=== PATIENT | female | born 1950 | race Hispanic/Latino ===

== ENCOUNTER 2017-12-04 10:50 | Inpatient (IN) | payer OTHER ==
[~2017-12-04] VITALS: Ht 152.4 cm; Wt 90.9 kg
[~2017-12-04 10:50] MED LIST: DESI25TA16 PO; DOCU100C19 PO; LISI1TAB11 PO; METO10TA3 PO; METO50TA18 PO; PANT40TA25 PO; SERT100T12 PO; TIZA2TAB4 PO
[2017-12-04 11:47] LABS: BASOPHILS % (AUTO) 0.7 % (0.0-5.0); EOSINOPHILS % (AUTO) 0.1 % (0.0-8.0); HEMATOCRIT 40.9 % (36-48); LYMPHOCYTES % (AUTO) 15.9 % (21.0-51.0); MEAN CORPUSCULAR HEMOGLOBIN 29.9 pg (27.0-33.0); MEAN CORPUSCULAR HGB CONC 34.5 g/dL (32.0-36.0); MEAN CORPUSCULAR VOLUME 86.6 fL (79-99); MONOCYTES % (AUTO) 4.6 % (3.0-13.0); NEUTROPHILS % (AUTO) 78.7 % (40.0-77.0); PLATELET COUNT (AUTO) 184 K/uL (130-400); RED BLOOD CELL COUNT(AUTO) 4.72 MIL/uL (4.00-5.50); RED CELL DISTRIBUTION WIDTH 12.9 % (11.0-15.5); WHITE BLOOD COUNT (AUTO) 11.2 K/uL (4.8-10.8)
[2017-12-04 11:51] LABS: CREATININE 0.8 mg/dL (0.5-1.5); POTASSIUM 3.9 mmol/L (3.5-5.1)
[2017-12-04 11:56] LABS: ALBUMIN 3.9 g/dL (3.5-5.0); BILIRUBIN,TOTAL 0.8 mg/dL (0.2-1.0); TOTAL PROTEIN, SERUM 7.8 g/dL (6.0-8.3)
[2017-12-04] MEDS ORDERED: NITROGLYCERIN 0.4 MG SL TAB SL ONE (12:22)
[2017-12-04 13:20] LABS: CREATINE KINASE MB 1.6 ng/mL (0.5-3.6); CREATINE KINASE, TOTAL 165 U/L (21-232); MYOGLOBIN 93 ng/mL (10-92); TROPONIN I < 0.04 ng/mL (0.00-0.06)
[2017-12-04] MEDS ORDERED: ASPIRIN 325 MG TABLET ONE (14:34)
[2017-12-04 15:10] VITALS: BP 165/69
[2017-12-04 15:15] LABS: CREATINE KINASE MB 1.4 ng/mL (0.5-3.6); CREATINE KINASE, TOTAL 141 U/L (21-232); MYOGLOBIN 57 ng/mL (10-92); TROPONIN I < 0.04 ng/mL (0.00-0.06)
[2017-12-04] MEDS ORDERED: [UNRECOGNIZED DRUG - OTHER] (15:25)
[2017-12-04] MEDS ORDERED: METO-391 PO (15:25)
[2017-12-04] MEDS ORDERED: AMOX500T2 PO (15:25)
[2017-12-04] MEDS ORDERED: MELO-106 PO (15:25)
[2017-12-04] MEDS ORDERED: ISOS30TA6 PO (15:25)
[2017-12-04] MEDS ORDERED: ASPI-1197 PO (15:25)
[2017-12-04] MEDS ORDERED: ACET1TAB25 PO (15:25)
[2017-12-04] MEDS ORDERED: [UNRECOGNIZED DRUG - CODE] MM (15:25)
[2017-12-04] MEDS ORDERED: PANT40TA PO (15:25)
[2017-12-04] MEDS ORDERED: METF500T6 PO (15:25)
[2017-12-04] MEDS ORDERED: ROSU5TAB18 PO (15:25)
[2017-12-04] MEDS ORDERED: SERT100T12 PO (15:25)
[2017-12-04] MEDS ORDERED: LISI1TAB13 PO (15:25)
[2017-12-04] MEDS ORDERED: NITR0.4T50 SL (15:25)
[2017-12-04 18:25] LABS: CREATINE KINASE, TOTAL 134 U/L (21-232); MYOGLOBIN 82 ng/mL (10-92); TROPONIN I < 0.04 ng/mL (0.00-0.06)
[2017-12-04 19:42] LABS: CREATINE KINASE MB 1.2 ng/mL (0.5-3.6)
[2017-12-04] MEDS: CLOTRIMAZOLE 10 MG TROCHE MM SCH (19:49)
[2017-12-04] MEDS: METOPROLOL TARTRATE 25 MG TAB PO SCH (20:05)
[2017-12-04 20:06] VITALS: BP 127/59
[2017-12-04] MEDS ORDERED: ATORVASTATIN CALCIUM 10 MG TABLET PO SCH (21:00)
[2017-12-04] MEDS ORDERED: IBUPROFEN 600 MG TABLET PO PRN (21:30)
[2017-12-04] MEDS ORDERED: IBUPROFEN 600 MG TABLET ONE (21:31)
[2017-12-05 00:40] VITALS: BP 123/57
[2017-12-05 03:14] VITALS: BP 137/67
[2017-12-05 07:07] VITALS: BP 135/77
[2017-12-05] MEDS: METOPROLOL TARTRATE 25 MG TAB PO SCH (07:26)
[2017-12-05] MEDS ORDERED: PANTOPRAZOLE SODIUM 40 MG TABLET.DR PO SCH (07:30)
[2017-12-05] MEDS: REGADENOSON 0.4 MG/5 ML PF SYG IVP SCH ×2 (07:45→10:57)
[2017-12-05] MEDS ORDERED: METFORMIN HCL 500 MG TAB.SR.24H PO SCH (08:00)
[2017-12-05] MEDS: CLOTRIMAZOLE 10 MG TROCHE MM SCH (08:50)
[2017-12-05] MEDS ORDERED: LISINOPRIL 20 MG TABLET PO SCH (09:00)
[2017-12-05] MEDS ORDERED: SERTRALINE HCL 50 MG TABLET PO SCH (09:00)
[2017-12-05] MEDS ORDERED: HYDROCHLOROTHIAZIDE 25 MG TABLET PO SCH (09:00)
[2017-12-05 12:39] VITALS: BP 135/76
[2017-12-05 16:21] VITALS: BP 142/70
== END 2017-12-05 17:45 | disposition home or self-care (01) | DRG 313 ==
LOC: EDH 10:50 → EDHIP 14:20 → 2AH 15:09
PROVIDERS: ADMIT Internal Medicine; ATTEND Internal Medicine
DX: R07.89 Other chest pain (principal); B37.0 Candidal stomatitis; Q24.5 Malformation of coronary vessels; E11.9 Type 2 diabetes mellitus without complications; E78.5 Hyperlipidemia, unspecified; I10 Essential (primary) hypertension; K21.9 Gastro-esophageal reflux disease without esophagitis; Z28.21 Immunization not carried out because of patient refusal; Z82.49 Family history of ischemic heart disease and other diseases of the circulatory system
CPT/HCPCS: 36415; 78452; 80053; 82550; 82553; 82948; 83874; 84484; 85025; 93005; 93017; 96374; 99291; A9500; J2785

== ENCOUNTER → 2018-02-25 | Outpatient (CLI) | payer OTHER ==
[~2018-02-25] MED LIST changes: +ACET1TAB25 PO; +AMOX500T2 PO; +ASPI-1197 PO; +ISOS30TA6 PO; +LISI1TAB13 PO; +MELO-106 PO; +METF500T6 PO; +METO-391 PO; +NITR0.4T50 SL; +PANT40TA PO; +ROSU5TAB11 PO; +[UNRECOGNIZED DRUG - CODE] MM; +[UNRECOGNIZED DRUG - OTHER]
== END | disposition home or self-care (01) ==
LOC: RAH 09:26
PROVIDERS: ATTEND Internal Medicine Gastroenterology
DX: K31.84 Gastroparesis (principal); N28.9 Disorder of kidney and ureter, unspecified
CPT/HCPCS: 76700; 78264; A9541

== ENCOUNTER → 2018-03-10 | Outpatient (CLI) | payer OTHER | END | disposition home or self-care (01) | LOC: RAH 09:36 | PROVIDERS: ATTEND Internal Medicine Gastroenterology | DX: R13.12 Dysphagia, oropharyngeal phase (principal); R63.3 Feeding difficulties | CPT/HCPCS: G8996; G8997; G8998; 74230; 92611 ==

== ENCOUNTER → 2019-02-02 | Outpatient (CLI) | payer SELFPAY ==
[~2019-02-02] MED LIST changes: +DOCU-282 PO; -DOCU100C19 PO; +METF-444 PO; -METF500T6 PO
== END | disposition home or self-care (01) ==
LOC: OIH 10:37
PROVIDERS: ATTEND Internal Medicine Cardiovascular Disease
DX: Z13.6 Encounter for screening for cardiovascular disorders (principal)
CPT/HCPCS: 75571

== ENCOUNTER → 2019-02-04 | Outpatient (CLI) | payer OTHER | END | disposition home or self-care (01) | LOC: SHCH 13:50 | PROVIDERS: ATTEND Internal Medicine Cardiovascular Disease | DX: I11.9 Hypertensive heart disease without heart failure (principal) | CPT/HCPCS: 93306 ==

== ENCOUNTER → 2019-05-13 | Outpatient (CLI) | payer OTHER ==
[~2019-05-13] MED LIST changes: -LISI1TAB11 PO; -LISI1TAB13 PO; +LISI1TAB27 PO; +LISI1TAB29 PO; -ROSU5TAB11 PO; +ROSU5TAB12 PO; -TIZA2TAB4 PO; +TIZA2TAB5 PO
== END | disposition home or self-care (01) ==
LOC: OIH 13:10
PROVIDERS: ATTEND Internal Medicine
DX: J45.20 Mild intermittent asthma, uncomplicated (principal); G47.33 Obstructive sleep apnea (adult) (pediatric); R07.9 Chest pain, unspecified; M47.815 Spondylosis without myelopathy or radiculopathy, thoracolumbar region
CPT/HCPCS: 71046

== ENCOUNTER → 2019-05-17 | Outpatient (CLI) | payer OTHER | END | disposition home or self-care (01) | LOC: RAH 14:19 | PROVIDERS: ATTEND Internal Medicine | DX: G44.209 Tension-type headache, unspecified, not intractable (principal) | CPT/HCPCS: 70450 ==

== ENCOUNTER 2019-12-07 07:17 | Day surgery (SDC) | payer OTHER ==
[~2019-12-07] VITALS: Ht 154.9 cm; Wt 90.7 kg
[~2019-12-07 07:17] MED LIST changes: -AMOX500T2 PO; -DOCU-282 PO; -LISI1TAB27 PO; -METO50TA18 PO; -PANT40TA PO; -PANT40TA25 PO; -SERT100T12 PO; +SODIUM CHLORIDE 0.9% 1000ML 1,000 ML IV ONE; -TIZA2TAB5 PO; -[UNRECOGNIZED DRUG - CODE] MM; -[UNRECOGNIZED DRUG - OTHER]
[2019-12-07 09:04] VITALS: BP 160/74
[2019-12-07] MEDS ORDERED: SERT100T PO (09:06)
[2019-12-07] MEDS ORDERED: ACET325C6 PO (09:06)
[2019-12-07] MEDS ORDERED: BUDE10.2 IH (09:06)
[2019-12-07] MEDS ORDERED: HYDROCORTISONE AD (09:06)
[2019-12-07] MEDS ORDERED: MONT10TA26 PO (09:06)
[2019-12-07] MEDS ORDERED: LANSOPRAZOLE PO (09:06)
[2019-12-07] MEDS ORDERED: FLUTICASONE NASAL (09:06)
[2019-12-07] MEDS ORDERED: ALBUTEROL NEB (09:06)
[2019-12-07] MEDS ORDERED: PROPOFOL 10 MG/ML 20ML VIAL IV ONE (09:21)
[2019-12-07] MEDS ORDERED: SUB TO ALBUTEROL 2.5MG/3ML NEBULES PER P&T IH ONE (09:23)
[2019-12-07 09:42] VITALS: BP 117/55
[2019-12-07 09:47] VITALS: BP 113/54
[2019-12-07 09:51] VITALS: BP 118/56
[2019-12-07 09:58] VITALS: BP 129/82
== END 2019-12-07 10:15 | disposition home or self-care (01) ==
LOC: DAH 07:17 → ENDO 07:17
PROVIDERS: ATTEND Internal Medicine
DX: K21.0 Gastro-esophageal reflux disease with esophagitis (principal); K29.50 Unspecified chronic gastritis without bleeding; K22.8 Other specified diseases of esophagus; J44.9 Chronic obstructive pulmonary disease, unspecified; G47.30 Sleep apnea, unspecified; I10 Essential (primary) hypertension; M19.90 Unspecified osteoarthritis, unspecified site; F32.9 Major depressive disorder, single episode, unspecified; E11.40 Type 2 diabetes mellitus with diabetic neuropathy, unspecified; E66.9 Obesity, unspecified; Z79.82 Long term (current) use of aspirin; Z79.899 Other long term (current) drug therapy; Z83.3 Family history of diabetes mellitus; Z82.49 Family history of ischemic heart disease and other diseases of the circulatory system; Z82.5 Family history of asthma and other chronic lower respiratory diseases; Z99.89 Dependence on other enabling machines and devices; Z79.84 Long term (current) use of oral hypoglycemic drugs; Z86.010 Personal history of colon polyps; Z68.39 Body mass index [BMI] 39.0-39.9, adult
CPT/HCPCS: 43239; 82948 ×2; 93005; A4215; A4221; A4222; A4223; A4606; A4620; A4663; J2704; J7030; 88305

== ENCOUNTER 2020-03-31 12:31 | Emergency (ER) | payer OTHER ==
[2020-03-31] MEDS ORDERED: ACETAMINOPHEN EXTRA STRENGTH 500 MG TABLET ONE (14:10)
== END 2020-03-31 16:02 | disposition home or self-care (01) ==
LOC: EDH 12:31
DX: B34.9 Viral infection, unspecified (principal); I10 Essential (primary) hypertension; E78.5 Hyperlipidemia, unspecified; E11.9 Type 2 diabetes mellitus without complications

== ENCOUNTER → 2020-05-14 | Outpatient (CLI) | payer OTHER ==
[~2020-05-14] MED LIST changes: -ACET1TAB25 PO; +ACET325C6 PO; +ALBUTEROL NEB; +BUDE10.2 IH; -DESI25TA16 PO; +FLUTICASONE NASAL; +HYDROCORTISONE AD; +LANSOPRAZOLE PO; -METO10TA3 PO; +MONT10TA26 PO; +SERT100T PO; -SODIUM CHLORIDE 0.9% 1000ML 1,000 ML IV ONE
--- NOTE | 2020-05-15 12:42 | NUR ---
REPORT CALLED DR DUARTE OFFICE AND INFORMED PT COVID POSITIVE. MD OFFICE WILL NOTIFY PATIENT.
== END | disposition home or self-care (01) ==
LOC: DAH 10:00 → EDSTATUS 05-17 07:15
PROVIDERS: ATTEND Internal Medicine
DX: U07.1 COVID-19 (principal); Z86.010 Personal history of colon polyps
CPT/HCPCS: C9803; U0003

== ENCOUNTER 2020-06-05 05:58 | Day surgery (SDC) | payer OTHER ==
[~2020-06-05] VITALS: Ht 154.9 cm; Wt 90.7 kg
[2020-06-05] MEDS ORDERED: SODIUM CHLORIDE 0.9% 1000ML 1,000 ML IV ONE (06:18)
[2020-06-05 06:36] VITALS: BP 137/69
[2020-06-05] MEDS ORDERED: FLUT1AER IH (07:01)
[2020-06-05] MEDS ORDERED: PROPOFOL 10 MG/ML 20ML VIAL IV ONE (07:40)
[2020-06-05] MEDS ORDERED: SUCCINYLCHOLINE CHLORIDE 20 MG/ML 10 ML VIAL ONE (07:41)
[2020-06-05] MEDS ORDERED: LIDOCAINE HCL 1% 20 ML VIAL ONE (07:41)
[2020-06-05] MEDS ORDERED: ATROPINE SULFATE 0.1 MG/ML 10 ML SYG IVP ONE (07:50)
[2020-06-05 08:05] VITALS: BP 134/62
[2020-06-05 08:10] VITALS: BP 122/65
[2020-06-05 08:15] VITALS: BP 132/66
[2020-06-05 08:20] VITALS: BP 134/66
[2020-06-05 08:25] VITALS: BP 136/77
== END 2020-06-05 08:45 | disposition home or self-care (01) ==
LOC: ENDO 05:58 → DAH 05:58 → ENDO 08:45
PROVIDERS: ATTEND Internal Medicine
DX: R19.7 Diarrhea, unspecified (principal); Z86.010 Personal history of colon polyps; K64.1 Second degree hemorrhoids; K57.30 Diverticulosis of large intestine without perforation or abscess without bleeding; K63.5 Polyp of colon; K31.84 Gastroparesis; J45.909 Unspecified asthma, uncomplicated; Z99.89 Dependence on other enabling machines and devices; I10 Essential (primary) hypertension; K21.9 Gastro-esophageal reflux disease without esophagitis; E66.01 Morbid (severe) obesity due to excess calories; F32.9 Major depressive disorder, single episode, unspecified; G62.9 Polyneuropathy, unspecified; E11.40 Type 2 diabetes mellitus with diabetic neuropathy, unspecified; M19.90 Unspecified osteoarthritis, unspecified site; Z20.828 Contact with and (suspected) exposure to other viral communicable diseases
CPT/HCPCS: 45380; 82948 ×2; A4215; A4221; A4222; A4223; A4606; A4615; A4663; C9803; J0330; J0461; J2704; J7030; U0003

== ENCOUNTER 2022-07-06 13:01 | Emergency (ER) | payer MEDICARE, OTHER ==
[~2022-07-06] VITALS: Ht 157.5 cm; Wt 81.6 kg
[~2022-07-06 13:01] MED LIST changes: -BUDE10.2 IH; +FLUT1AER IH; -ISOS30TA6 PO; +ISOS30TA92 PO; -LISI1TAB29 PO; +LISI1TAB53 PO; +MONT-39 PO; -MONT10TA26 PO
[2022-07-06 14:15] LABS: BASOPHILS % (AUTO) 0.5 % (0.0-5.0); EOSINOPHILS % (AUTO) 1.9 % (0.0-8.0); HEMATOCRIT 36.2 % (36-48); LYMPHOCYTES % (AUTO) 19.7 % (21.0-51.0); MEAN CORPUSCULAR HEMOGLOBIN 29.7 pg (27.0-33.0); MEAN CORPUSCULAR HGB CONC 35.1 g/dL (32.0-36.0); MEAN CORPUSCULAR VOLUME 84.8 fL (79-99); MONOCYTES % (AUTO) 6.1 % (3.0-13.0); NEUTROPHILS % (AUTO) 71.3 % (40.0-77.0); PLATELET COUNT (AUTO) 167 K/uL (130-400); RED BLOOD CELL COUNT(AUTO) 4.27 MIL/uL (4.00-5.50); RED CELL DISTRIBUTION WIDTH 12.4 % (11.0-15.5); WHITE BLOOD COUNT (AUTO) 8.8 K/uL (4.8-10.8)
[2022-07-06 14:35] LABS: CREATININE 0.8 mg/dL (0.5-1.5); POTASSIUM 3.9 mmol/L (3.5-5.1)
[2022-07-06 14:47] LABS: ALBUMIN 3.7 g/dL (3.5-5.0); TOTAL PROTEIN, SERUM 7.2 g/dL (6.0-8.3)
[2022-07-06] MEDS ORDERED: CYCLOBENZAPRINE HCL 10 MG TABLET PO ONE (17:00)
[2022-07-06] MEDS ORDERED: PROMETHAZINE HCL 25 MG/ML 1ML AMPULE IM SCH (17:00)
[2022-07-06] MEDS ORDERED: 0.9% NACL 500ML IV.SOLN 500 ML IV SCH (17:00)
[2022-07-06] MEDS ORDERED: KETOROLAC 30MG VIAL (30MG/ML) IM ONE (17:00)
[2022-07-06] MEDS ORDERED: NAPR-1180 PO (18:29)
[2022-07-06] MEDS ORDERED: CYCL10TA16 PO (18:29)
[2022-07-06 18:43] VITALS: BP 132/78
== END 2022-07-06 18:51 | disposition home or self-care (01) ==
LOC: EDH 13:01
DX: G44.209 Tension-type headache, unspecified, not intractable (principal); E86.0 Dehydration; E11.9 Type 2 diabetes mellitus without complications; E78.00 Pure hypercholesterolemia, unspecified; I10 Essential (primary) hypertension; Z90.89 Acquired absence of other organs; Z90.49 Acquired absence of other specified parts of digestive tract; Z98.890 Other specified postprocedural states; Z79.899 Other long term (current) drug therapy; Z79.82 Long term (current) use of aspirin; Z79.84 Long term (current) use of oral hypoglycemic drugs
CPT/HCPCS: 99285; 70450; 82550; 83874; 84484; 80053; 85025; 36415; 96372 ×2; 93005; J7040; J2550; J1885

== ENCOUNTER 2022-12-02 15:02 | Emergency (ER) | payer OTHER ==
[~2022-12-02] VITALS: Ht 154.9 cm; Wt 83.9 kg
[~2022-12-02 15:02] MED LIST changes: +CYCL10TA16 PO; +NAPR-1180 PO
[2022-12-02 15:35] VITALS: BP 142/71
[2022-12-02] MEDS ORDERED: DEXAMETHASONE SOD PHOSPHATE 4 MG/ML 1ML VIAL ONE (17:52)
[2022-12-02] MEDS ORDERED: DEXAMETHASONE SOD PHOSPHATE 4 MG/ML 1ML VIAL IM ONE (18:00)
== END 2022-12-02 18:10 | disposition home or self-care (01) ==
LOC: EDH 15:02
DX: M70.72 Other bursitis of hip, left hip (principal); M70.71 Other bursitis of hip, right hip; M25.551 Pain in right hip; M25.552 Pain in left hip; I10 Essential (primary) hypertension; E78.00 Pure hypercholesterolemia, unspecified; E11.9 Type 2 diabetes mellitus without complications; Z79.899 Other long term (current) drug therapy; Z79.82 Long term (current) use of aspirin; Z90.89 Acquired absence of other organs; Z90.710 Acquired absence of both cervix and uterus; Z90.49 Acquired absence of other specified parts of digestive tract
CPT/HCPCS: 99283; 96372; J1100

== ENCOUNTER → 2023-02-06 | Outpatient (CLI) | payer OTHER | END | disposition home or self-care (01) | LOC: RAH 08:02 | PROVIDERS: ATTEND Internal Medicine | DX: R10.32 Left lower quadrant pain (principal) | CPT/HCPCS: 74176 ==

== ENCOUNTER 2023-03-07 11:43 | Observation (INO) | payer OTHER ==
[~2023-03-07] VITALS: Ht 154.9 cm; Wt 72.9 kg
[2023-03-07 12:14] LABS: BASOPHILS % (AUTO) 0.9 % (0.0-5.0); EOSINOPHILS % (AUTO) 4.7 % (0.0-8.0); HEMATOCRIT 33.6 % (36-48); LYMPHOCYTES % (AUTO) 35.7 % (21.0-51.0); MEAN CORPUSCULAR HEMOGLOBIN 29.4 pg (27.0-33.0); MEAN CORPUSCULAR HGB CONC 33.9 g/dL (32.0-36.0); MEAN CORPUSCULAR VOLUME 86.6 fL (79-99); NEUTROPHILS % (AUTO) 52.4 % (40.0-77.0); PLATELET COUNT (AUTO) 168 K/uL (130-400); RED BLOOD CELL COUNT(AUTO) 3.88 MIL/uL (4.00-5.50); RED CELL DISTRIBUTION WIDTH 12.3 % (11.0-15.5); WHITE BLOOD COUNT (AUTO) 5.8 K/uL (4.8-10.8)
[2023-03-07 12:24] LABS: CREATININE 1.2 mg/dL (0.5-1.5); POTASSIUM 3.8 mmol/L (3.5-5.1)
[2023-03-07 12:29] LABS: ALBUMIN 3.9 g/dL (3.5-5.0); MAGNESIUM 1.7 mg/dL (1.80-2.40)
[2023-03-07 14:48] LABS: APPEARANCE,URINE CLEAR (CLEAR); BILIRUBIN,URINE NEGATIVE (NEGATIVE); COLOR,URINE LIGHT-YELLOW (YELLOW); GLUCOSE, URINE (UA) NEGATIVE (NEGATIVE); KETONES,URINE NEGATIVE (NEGATIVE); LEUKOCYTE ESTERASE ,URINE NEGATIVE Leu/uL (NEGATIVE); NITRATE,URINE NEGATIVE (NEGATIVE); OCCULT BLOOD,URINE NEGATIVE (NEGATIVE); PROTEIN,URINE NEGATIVE (NEGATIVE); UROBILINOGEN,URINE 0.2 mg/dL (0.2-1.0)
[2023-03-07 14:52] LABS: WBC,URINE 0-1 /HPF (0-1)
[2023-03-07] MEDS ORDERED: 0.9%NACL 1000ML 1,000 ML IV ONE (15:30)
[2023-03-07] MEDS ORDERED: DICYCLOMINE HCL 10 MG/5 ML ML PO ONE (16:30)
[2023-03-07] MEDS ORDERED: MAG/ALUM/SIMETH 30 ML UDCUP PO ONE (16:30)
[2023-03-07] MEDS ORDERED: LIDOCAINE HCL 2% VISCOUS 15 ML UDCUP PO ONE (16:30)
[2023-03-08 03:50] VITALS: BP 167/78
[2023-03-08] MEDS ORDERED: METO-408 PO (03:51)
[2023-03-08] MEDS ORDERED: AEC81 PO (03:53)
[2023-03-08] MEDS ORDERED: PANT40TA54 PO (03:57)
[2023-03-08] MEDS ORDERED: HYDR-4060 PO (03:57)
[2023-03-08] MEDS ORDERED: BACL10TA PO (04:00)
[2023-03-08] MEDS ORDERED: GABA-529 PO (04:00)
[2023-03-08] MEDS ORDERED: ACET-2743 PO (04:04)
[2023-03-08] MEDS ORDERED: ACET325C6 PO (04:04)
[2023-03-08] MEDS ORDERED: CETI10TA57 PO (04:11)
[2023-03-08] MEDS ORDERED: FISH OIL/OMEGA PO (04:11)
[2023-03-08] MEDS ORDERED: MULT-1203 PO (04:11)
[2023-03-08] MEDS ORDERED: CARB15DR2 OU (04:16)
[2023-03-08] MEDS ORDERED: DICL75TA5 PO (04:16)
[2023-03-08] MEDS ORDERED: FURO20TA4 PO (04:16)
[2023-03-08 06:16] LABS: BASOPHILS % (AUTO) 0.5 % (0.0-5.0); EOSINOPHILS % (AUTO) 4.1 % (0.0-8.0); HEMATOCRIT 31.4 % (36-48); LYMPHOCYTES % (AUTO) 39.8 % (21.0-51.0); MEAN CORPUSCULAR HEMOGLOBIN 29.9 pg (27.0-33.0); MEAN CORPUSCULAR HGB CONC 34.7 g/dL (32.0-36.0); MONOCYTES % (AUTO) 6.2 % (3.0-13.0); NEUTROPHILS % (AUTO) 49.2 % (40.0-77.0); PLATELET COUNT (AUTO) 138 K/uL (130-400); RED BLOOD CELL COUNT(AUTO) 3.65 MIL/uL (4.00-5.50); RED CELL DISTRIBUTION WIDTH 12.2 % (11.0-15.5); WHITE BLOOD COUNT (AUTO) 5.6 K/uL (4.8-10.8)
[2023-03-08 06:43] LABS: ALBUMIN 3.4 g/dL (3.5-5.0); POTASSIUM 3.9 mmol/L (3.5-5.1); TOTAL PROTEIN, SERUM 6.5 g/dL (6.0-8.3)
[2023-03-08 08:00] VITALS: BP 145/71
[2023-03-08] MEDS: ASPIRIN 81 MG EC TAB PO SCH (09:00)
[2023-03-08 12:00] VITALS: BP 122/68
[2023-03-08] MEDS ORDERED: REGADENOSON 0.4 MG/5 ML PF SYG IVP SCH (12:00)
[2023-03-08 16:00] VITALS: BP 160/77
[2023-03-08] MEDS ORDERED: NITROGLYCERIN 0.4 MG SL TAB SL PRN (17:30)
[2023-03-08] MEDS ORDERED: HYDROMORPHONE 0.5 MG SYG (0.5MG/0.5ML) IVP PRN (17:30)
[2023-03-08] MEDS ORDERED: PHARMACY COMMUNICATION MISC SCH (18:00)
[2023-03-08] MEDS: HYDROCODONE/ACETAMINOPHEN 5/325 MG TAB PO PRN (18:05)
[2023-03-08] MEDS: INSULIN HUMULIN R 100 UNIT/ML 3ML SQ SCH (21:00)
[2023-03-08] MEDS: DICLOFENAC SODIUM 75 MG PO SCH (21:00)
[2023-03-08] MEDS: METOPROLOL SUCCINATE 25 MG TAB.SR.24H PO SCH (21:00)
[2023-03-08] MEDS ORDERED: ASPIRIN 81 MG EC TAB PO SCH (21:00)
[2023-03-08 21:46] VITALS: BP 152/50
[2023-03-08] MEDS: FLUTICASONE PROPIONATE 50MCG/SPRAY 16 GM BOTTLE EN SCH (22:03)
[2023-03-08] MEDS: BACLOFEN 10 MG TABLET PO SCH (22:04)
[2023-03-08] MEDS: ATORVASTATIN 10 MG TABLET PO SCH (22:04)
[2023-03-08] MEDS: MONTELUKAST SODIUM 10 MG TAB PO SCH (22:04)
[2023-03-08] MEDS: GABAPENTIN 100 MG CAPSULE PO SCH (22:04)
[2023-03-08] MEDS: CETIRIZINE HCL 5 MG TABLET PO SCH (22:07)
[2023-03-08] MEDS: ACETAMINOPHEN 500 MG TABLET PO SCH (22:07)
[2023-03-08] MEDS: ARTIFICAL TEARS SOL 15 ML OU SCH (22:09)
[2023-03-09 01:16] VITALS: BP 137/48
[2023-03-09 05:23] VITALS: BP 126/49
[2023-03-09] MEDS: INSULIN HUMULIN R 100 UNIT/ML 3ML SQ SCH ×4 (06:24→20:27)
[2023-03-09] MEDS ORDERED: METFORMIN HCL 500 MG TABLET PO SCH (08:00)
[2023-03-09 08:01] VITALS: BP 152/70
[2023-03-09] MEDS: DICLOFENAC SODIUM 75 MG PO SCH ×2 (09:00→20:27)
[2023-03-09] MEDS: GABAPENTIN 100 MG CAPSULE PO SCH ×2 (10:49→20:21)
[2023-03-09] MEDS: MULTIVITAMIN WITH MINERALS TABLET PO SCH (10:49)
[2023-03-09] MEDS: SERTRALINE HCL 50 MG TABLET PO SCH (10:49)
[2023-03-09] MEDS: FISH OIL 1000 MG/CAP PO SCH (10:49)
[2023-03-09] MEDS: FUROSEMIDE 20 MG TABLET PO SCH (10:49)
[2023-03-09] MEDS: ISOSORBIDE MONO 30MG SR TAB PO SCH (10:49)
[2023-03-09] MEDS: BACLOFEN 10 MG TABLET PO SCH ×3 (10:50→20:22)
[2023-03-09] MEDS: HYDROCHLOROTHIAZIDE 25 MG TABLET PO SCH (10:50)
[2023-03-09] MEDS: ASPIRIN 81 MG EC TAB PO SCH (10:50)
[2023-03-09] MEDS: PANTOPRAZOLE 40 MG TAB DR PO SCH (10:50)
[2023-03-09] MEDS: LISINOPRIL 20 MG TABLET PO SCH (10:50)
[2023-03-09] MEDS: ARTIFICAL TEARS SOL 15 ML OU SCH ×2 (10:51→20:22)
[2023-03-09] MEDS: FLUTICASONE PROPIONATE 50MCG/SPRAY 16 GM BOTTLE EN SCH ×2 (10:51→20:22)
[2023-03-09 11:55] VITALS: BP 147/62
[2023-03-09] MEDS: HYDROCODONE/ACETAMINOPHEN 5/325 MG TAB PO PRN (16:28)
[2023-03-09 16:54] VITALS: BP 127/65
[2023-03-09] MEDS ORDERED: ACETAMINOPHEN 650 MG PO SCH (17:00)
[2023-03-09 20:00] VITALS: BP 119/60
[2023-03-09] MEDS: MONTELUKAST SODIUM 10 MG TAB PO SCH (20:21)
[2023-03-09] MEDS: METOPROLOL SUCCINATE 25 MG TAB.SR.24H PO SCH (20:21)
[2023-03-09] MEDS: CETIRIZINE HCL 5 MG TABLET PO SCH (20:21)
[2023-03-09] MEDS: ATORVASTATIN 10 MG TABLET PO SCH (20:22)
[2023-03-09] MEDS: ACETAMINOPHEN 500 MG TABLET PO SCH (20:23)
[2023-03-10] VITALS: BP 126/54
[2023-03-10] MEDS: HYDROCODONE/ACETAMINOPHEN 5/325 MG TAB PO PRN (02:21)
[2023-03-10 04:10] VITALS: BP 98/48
[2023-03-10] MEDS: INSULIN HUMULIN R 100 UNIT/ML 3ML SQ SCH (05:59)
[2023-03-10] MEDS: ISOSORBIDE MONO 30MG SR TAB PO SCH (08:27)
[2023-03-10] MEDS: FISH OIL 1000 MG/CAP PO SCH (08:27)
[2023-03-10] MEDS: FUROSEMIDE 20 MG TABLET PO SCH (08:28)
[2023-03-10] MEDS: ASPIRIN 81 MG EC TAB PO SCH (08:28)
[2023-03-10] MEDS: LISINOPRIL 20 MG TABLET PO SCH (08:28)
[2023-03-10] MEDS: MULTIVITAMIN WITH MINERALS TABLET PO SCH (08:28)
[2023-03-10] MEDS: HYDROCHLOROTHIAZIDE 25 MG TABLET PO SCH (08:28)
[2023-03-10] MEDS: SERTRALINE HCL 50 MG TABLET PO SCH (08:29)
[2023-03-10] MEDS: GABAPENTIN 100 MG CAPSULE PO SCH (08:29)
[2023-03-10] MEDS: BACLOFEN 10 MG TABLET PO SCH (08:29)
[2023-03-10] MEDS: PANTOPRAZOLE 40 MG TAB DR PO SCH (08:29)
[2023-03-10] MEDS: FLUTICASONE PROPIONATE 50MCG/SPRAY 16 GM BOTTLE EN SCH (08:30)
[2023-03-10] MEDS: ARTIFICAL TEARS SOL 15 ML OU SCH (08:30)
[2023-03-10] MEDS: DICLOFENAC SODIUM 75 MG PO SCH (08:33)
[2023-03-10 08:43] VITALS: BP 122/47
== END 2023-03-10 10:50 | disposition home or self-care (01) ==
LOC: EDH 11:43 → EDHIP 15:22 → 3AH 03-08 03:50
PROVIDERS: ADMIT Internal Medicine; ATTEND Internal Medicine
DX: R07.89 Other chest pain (principal); Z20.822 Contact with and (suspected) exposure to COVID-19; I25.10 Atherosclerotic heart disease of native coronary artery without angina pectoris; E11.65 Type 2 diabetes mellitus with hyperglycemia; I11.0 Hypertensive heart disease with heart failure; I50.9 Heart failure, unspecified; E78.00 Pure hypercholesterolemia, unspecified; E66.9 Obesity, unspecified; N17.9 Acute kidney failure, unspecified; E86.0 Dehydration; Z79.82 Long term (current) use of aspirin; Z79.899 Other long term (current) drug therapy; Z90.710 Acquired absence of both cervix and uterus
CPT/HCPCS: 96360; 99285; 82550 ×4; 83735; 83874 ×4; 84484 ×5; 80053 ×2; 85025 ×2; 87880; 87804 ×2; 83605; 81001; 36415 ×2; 87635; 71045; 93005; 82948 ×9; 93017; 78452; 96372 ×2; 71250; 93306; 93356; G0378 ×62; C9803; J2785; A9500 ×2; J1815 ×4; 96361; 96374

== ENCOUNTER → 2023-03-26 | Outpatient (CLI) | payer OTHER ==
[~2023-03-26] MED LIST changes: +ACET-2743 PO; +AEC81 PO; -ASPI-1197 PO; +BACL10TA PO; +CARB15DR2 OU; +CETI10TA57 PO; -CYCL10TA16 PO; +DICL75TA5 PO; +FISH OIL/OMEGA PO; -FLUT1AER IH; +FURO20TA4 PO; +GABA-529 PO; +HYDR-4060 PO; -HYDROCORTISONE AD; -LANSOPRAZOLE PO; -MELO-106 PO; -METO-391 PO; +METO-408 PO; +MULT-1203 PO; -NAPR-1180 PO; +PANT40TA54 PO
== END | disposition home or self-care (01) ==
LOC: RAH 16:04
PROVIDERS: ATTEND Internal Medicine
DX: J20.9 Acute bronchitis, unspecified (principal); M47.814 Spondylosis without myelopathy or radiculopathy, thoracic region
CPT/HCPCS: 71046

== ENCOUNTER 2023-06-22 18:01 | Emergency (ER) | payer MEDICARE, OTHER ==
[~2023-06-22] VITALS: Ht 154.9 cm; Wt 81.6 kg
[2023-06-22 18:39] LABS: BASOPHILS # (AUTO) 0.05 K/uL (0.00-0.20); BASOPHILS % (AUTO) 0.6 % (0.0-5.0); EOSINOPHILS # (AUTO) 0.14 K/uL (0.00-0.70); EOSINOPHILS % (AUTO) 1.6 % (0.0-8.0); HEMATOCRIT 35.1 % (36-48); IMMATURE GRANULOCYTE ABSOLUTE 0.02 K/uL (0-1); LYMPHOCYTES # (AUTO) 2.6 K/uL (1.0-4.8); LYMPHOCYTES % (AUTO) 30.6 % (21.0-51.0); MEAN CORPUSCULAR HEMOGLOBIN 28.1 pg (27.0-33.0); MONOCYTES # (AUTO) 0.5 K/uL (0.1-1.0); MONOCYTES % (AUTO) 5.5 % (3.0-13.0); NEUTROPHILS # (AUTO) 5.3 K/uL (1.8-7.7); NEUTROPHILS % (AUTO) 61.5 % (40.0-77.0); PLATELET COUNT (AUTO) 185 K/uL (130-400); RED BLOOD CELL COUNT(AUTO) 4.13 MIL/uL (4.00-5.50); RED CELL DISTRIBUTION WIDTH 16.2 % (11.0-15.5); WHITE BLOOD COUNT (AUTO) 8.6 K/uL (4.8-10.8)
[2023-06-22 18:43] LABS: APPEARANCE,URINE CLEAR (CLEAR); BILIRUBIN,URINE NEGATIVE (NEGATIVE); COLOR,URINE LIGHT-YELLOW (YELLOW); GLUCOSE, URINE (UA) NEGATIVE (NEGATIVE); KETONES,URINE NEGATIVE (NEGATIVE); LEUKOCYTE ESTERASE ,URINE 25 Leu/uL (NEGATIVE); NITRATE,URINE NEGATIVE (NEGATIVE); OCCULT BLOOD,URINE NEGATIVE (NEGATIVE); PROTEIN,URINE NEGATIVE (NEGATIVE); UROBILINOGEN,URINE 0.2 mg/dL (0.2-1.0)
[2023-06-22 18:48] LABS: CREATININE 2.9 mg/dL (0.5-1.5); POTASSIUM 3.5 mmol/L (3.5-5.1)
[2023-06-22 18:49] LABS: ADD UA MICROSCOPIC YES
[2023-06-22 18:50] LABS: MUCUS,URINE RARE LPF (None Seen); RBC,URINE 0-1 /HPF (0-1)
[2023-06-22] MEDS ORDERED: ONDANSETRON ODT 4MG TAB SL ONE (19:30)
[2023-06-22 19:55] VITALS: BP 123/51; PULSE 67; RESP 17; O2SAT 99
[2023-06-22] MEDS ORDERED: ONDA-104 PO (21:12)
== END 2023-06-22 21:31 | disposition home or self-care (01) ==
LOC: EDH 18:01
DX: R11.2 Nausea with vomiting, unspecified (principal); E11.9 Type 2 diabetes mellitus without complications; F41.9 Anxiety disorder, unspecified; E78.00 Pure hypercholesterolemia, unspecified; I11.0 Hypertensive heart disease with heart failure; I50.9 Heart failure, unspecified; K21.9 Gastro-esophageal reflux disease without esophagitis; E66.9 Obesity, unspecified; Z68.34 Body mass index [BMI] 34.0-34.9, adult; Z79.82 Long term (current) use of aspirin; Z79.899 Other long term (current) drug therapy; Z90.49 Acquired absence of other specified parts of digestive tract; Z90.710 Acquired absence of both cervix and uterus
CPT/HCPCS: 36415; 71045; 80048; 81001; 85025; 93005

== ENCOUNTER → 2024-04-08 | Outpatient (CLI) | payer OTHER ==
[~2024-04-08] MED LIST changes: +ONDA-104 PO; -ROSU5TAB12 PO; +ROSU5TAB43 PO
== END | disposition home or self-care (01) ==
LOC: SHCH 08:32
PROVIDERS: ATTEND Internal Medicine Cardiovascular Disease
DX: I08.3 Combined rheumatic disorders of mitral, aortic and tricuspid valves (principal)
CPT/HCPCS: 93306

== ENCOUNTER → 2024-06-21 | Outpatient (CLI) | payer OTHER | END | disposition home or self-care (01) | LOC: RAH 15:44 | PROVIDERS: ATTEND Internal Medicine | DX: S33.39XA Dislocation of other parts of lumbar spine and pelvis, initial encounter (principal); S33.140A Subluxation of L4/L5 lumbar vertebra, initial encounter; M47.26 Other spondylosis with radiculopathy, lumbar region; M48.07 Spinal stenosis, lumbosacral region; M16.9 Osteoarthritis of hip, unspecified; Z98.890 Other specified postprocedural states; X58.XXXA Exposure to other specified factors, initial encounter; Y93.89 Activity, other specified; Y92.89 Other specified places as the place of occurrence of the external cause; Y99.8 Other external cause status | CPT/HCPCS: 72100; 73521 ==

== ENCOUNTER 2024-07-14 23:20 | Observation (INO) | payer OTHER ==
[~2024-07-14] VITALS: Ht 144.8 cm; Wt 86.4 kg
[2024-07-15] MEDS: NITROGLYCERIN 0.4 MG SL TAB SL PRN (00:18)
[2024-07-15] MEDS: morPHINE 2 MG SYG IVP ONE (00:18)
[2024-07-15] MEDS: ondanSETRON 4MG INJ IVP ONE (00:19)
[2024-07-15 00:49] LABS: APPEARANCE,URINE CLEAR (CLEAR); BILIRUBIN,URINE NEGATIVE (NEGATIVE); COLOR,URINE LIGHT-YELLOW (YELLOW); GLUCOSE, URINE (UA) NEGATIVE (NEGATIVE); KETONES,URINE NEGATIVE (NEGATIVE); LEUKOCYTE ESTERASE ,URINE NEGATIVE Leu/uL (NEGATIVE); NITRATE,URINE NEGATIVE (NEGATIVE); OCCULT BLOOD,URINE NEGATIVE (NEGATIVE); PH,URINE 5.5 (5.0-8.0); PROTEIN,URINE NEGATIVE (NEGATIVE); UROBILINOGEN,URINE 0.2 mg/dL (0.2-1.0)
[2024-07-15 00:55] LABS: ADD UA MICROSCOPIC NO
[2024-07-15 01:08] LABS: CREATININE 1.2 mg/dL (0.5-1.0); POTASSIUM 3.9 mmol/L (3.5-5.1)
[2024-07-15 01:13] LABS: BASOPHILS # (AUTO) 0.04 K/uL (0.00-0.20); BASOPHILS % (AUTO) 0.7 % (0.0-5.0); EOSINOPHILS # (AUTO) 0.16 K/uL (0.00-0.70); HEMATOCRIT 34.7 % (36-48); IMMATURE GRANULOCYTE ABSOLUTE 0.03 K/uL (0-1); LYMPHOCYTES # (AUTO) 1.5 K/uL (1.0-4.8); LYMPHOCYTES % (AUTO) 27.9 % (21.0-51.0); MEAN CORPUSCULAR HEMOGLOBIN 31.2 pg (27.0-33.0); MEAN CORPUSCULAR HGB CONC 34.6 g/dL (32.0-36.0); MEAN CORPUSCULAR VOLUME 90.1 fL (79-99); MONOCYTES # (AUTO) 0.5 K/uL (0.1-1.0); MONOCYTES % (AUTO) 10.1 % (3.0-13.0); NEUTROPHILS # (AUTO) 3.1 K/uL (1.8-7.7); NEUTROPHILS % (AUTO) 57.7 % (40.0-77.0); PLATELET COUNT (AUTO) 136 K/uL (130-400); RED BLOOD CELL COUNT(AUTO) 3.85 MIL/uL (4.00-5.50); RED CELL DISTRIBUTION WIDTH 12.7 % (11.0-15.5); WHITE BLOOD COUNT (AUTO) 5.4 K/uL (4.8-10.8)
[2024-07-15] MEDS ORDERED: AMLO2.5T4 PO (01:19)
[2024-07-15] MEDS ORDERED: METO5 PO (01:19)
[2024-07-15] MEDS ORDERED: CELE200C3 PO (01:19)
[2024-07-15] MEDS ORDERED: ROSU5TAB43 PO (01:19)
[2024-07-15] MEDS ORDERED: MONT-39 PO (01:19)
[2024-07-15] MEDS ORDERED: GLIM2TAB30 PO (01:19)
[2024-07-15] MEDS ORDERED: hydrALAZine 20MG/ML VIAL IV PRN (02:30)
[2024-07-15] MEDS ORDERED: DEXTROSE 5 %-0.45 % NACL 500 ML IV SCH (02:30)
[2024-07-15] MEDS: hydrALAZine 20MG/ML VIAL IV ONE (02:51)
[2024-07-15 04:00] VITALS: BP 159/57; PULSE 80; RESP 20; TEMP 97.5; O2SAT 100
[2024-07-15 07:58] VITALS: BP 145/70; PULSE 82; RESP 18; TEMP 97.4
[2024-07-15 08:15] VITALS: O2SAT 100
[2024-07-15] MEDS: ASPIRIN 81MG CHEW TAB PO SCH (10:04)
[2024-07-15] MEDS: REGADENOSON 0.4 MG/5 ML PF SYG IVP SCH (10:04)
[2024-07-15 11:46] VITALS: BP 146/74; PULSE 68; RESP 20; TEMP 97.8
[2024-07-15 15:40] VITALS: BP 148/76; PULSE 76; RESP 20; TEMP 98.1
[2024-07-15] MEDS: ISOSORBIDE MONO 30MG SR TAB PO SCH (17:23)
[2024-07-15] MEDS: hydroCHLOROthiazide 25 MG TABLET PO SCH (17:23)
[2024-07-15] MEDS: metoCLOPRAmide 5 MG TABLET PO SCH (17:24)
[2024-07-15] MEDS: HYDROcodone/APAP 5/325 1 TAB TABLET PO PRN (17:32)
[2024-07-15] MEDS ORDERED: atorVAStatin 20 MG TABLET PO SCH (21:00)
[2024-07-15] MEDS ORDERED: CeleCOXib 200 MG CAP PO SCH (21:00)
[2024-07-15] MEDS ORDERED: monteLUKAST sodIUM 10 MG TAB PO SCH (21:00)
[2024-07-16] MEDS ORDERED: LISINOPRIL 20 MG TABLET PO SCH ×2 (09:00)
[2024-07-16] MEDS ORDERED: ISOSORBIDE MONO 30MG SR TAB PO SCH (09:00)
[2024-07-16] MEDS ORDERED: hydroCHLOROthiazide 25 MG TABLET PO SCH (09:00)
[2024-07-16] MEDS ORDERED: GLIMEPIRIDE 2 MG TABLET PO SCH (09:00)
[2024-07-16] MEDS ORDERED: SERTraline HCL 50 MG TABLET PO SCH (09:00)
[2024-07-16] MEDS ORDERED: PANTOPrazole 40 MG TAB DR PO SCH (09:00)
== END 2024-07-15 18:59 | disposition home or self-care (01) ==
LOC: EDH 23:20 → EDHIP 07-15 02:17 → OBSVTOIN 07-15 02:17 → INTOOBSV 07-15 02:17 → 4CH 07-15 02:42
PROVIDERS: ADMIT Internal Medicine; ATTEND Internal Medicine
DX: R07.89 Other chest pain (principal); I11.0 Hypertensive heart disease with heart failure; I50.9 Heart failure, unspecified; E11.65 Type 2 diabetes mellitus with hyperglycemia; E78.5 Hyperlipidemia, unspecified; I16.1 Hypertensive emergency; I25.119 Atherosclerotic heart disease of native coronary artery with unspecified angina pectoris; G89.29 Other chronic pain; Z90.49 Acquired absence of other specified parts of digestive tract; Z79.899 Other long term (current) drug therapy; Z79.84 Long term (current) use of oral hypoglycemic drugs
CPT/HCPCS: 78452; 99285; 96374; 96375; 71045; 82550 ×3; 84484 ×4; 80048; 83880; 85025; 82948 ×3; 81003; 36415; 93017; 93005; G0378; J2270; J0360; J2405; J2785; A9500 ×2

== ENCOUNTER 2025-07-11 08:00 | Inpatient (IN) | payer OTHER ==
[~2025-07-11] VITALS: Ht 152.4 cm; Wt 86.0 kg
[~2025-07-11 08:00] MED LIST changes: -ACET-2743 PO; -ACET325C6 PO; -AEC81 PO; -ALBUTEROL NEB; -BACL10TA PO; -CARB15DR2 OU; +CELE200C3 PO; -CETI10TA57 PO; -DICL75TA5 PO; -FISH OIL/OMEGA PO; -FLUTICASONE NASAL; -FURO20TA4 PO; -GABA-529 PO; +GLIM2TAB30 PO; -METF-444 PO; -METO-408 PO; +METO5 PO; -MULT-1203 PO; -NITR0.4T50 SL; -ONDA-104 PO; -ROSU5TAB43 PO; +ROSU5TAB51 PO
[2025-07-11 09:17] VITALS: BP 146/72; PULSE 65; RESP 18; TEMP 97.5
[2025-07-11 09:17] LABS: IMMATURE GRANULOCYTE ABSOLUTE 0.08 K/uL (0-1); NUCLEATED RED BLOOD CELLS 0.0 % (0.0-0.19); PLATELET COUNT (AUTO) 149 K/uL (130-400); RED BLOOD CELL COUNT(AUTO) 3.86 MIL/uL (4.00-5.50); RED CELL DISTRIBUTION WIDTH 12.8 % (11.0-15.5); WHITE BLOOD COUNT (AUTO) 7.0 K/uL (4.8-10.8)
[2025-07-11 09:25] LABS: CREATININE 1.3 mg/dL (0.5-1.0); GLOMERULAR FILTR. RATE CALC 43.0 mL/min (>90); GLUCOSE,RANDOM 325.0 mg/dL (70-105); SODIUM SERUM 137.0 mmol/L (136-145); UREA NITROGEN, BLOOD 32.0 mg/dL (7-18)
[2025-07-11 09:36] LABS: INR 1.06 (0.85-1.15)
[2025-07-11] MEDS ORDERED: OZEMPIC SQ (10:08)
[2025-07-11] MEDS ORDERED: GABA-529 PO (10:08)
[2025-07-13] VITALS (21 sets, daily range): BP systolic 101–153; BP diastolic 50–77; PULSE 61–81; RESP 14–18; TEMP 97–98.7; O2SAT 94
[2025-07-13 08:48] LABS: ADD UA MICROSCOPIC NO; APPEARANCE,URINE CLEAR (CLEAR); GLUCOSE, URINE (UA) NEGATIVE (NEGATIVE); LEUKOCYTE ESTERASE ,URINE NEGATIVE Leu/uL (NEGATIVE); NITRATE,URINE NEGATIVE (NEGATIVE); OCCULT BLOOD,URINE NEGATIVE (NEGATIVE)
[2025-07-13] MEDS ORDERED: TRANEXAMIC ACID 1000MG/10ML ONE (09:20)
[2025-07-13] MEDS ORDERED: methylPREDNISolone aceTATE 40 MG/ML VIAL ONE (09:22)
[2025-07-13] MEDS ORDERED: VANCOMYCIN 1G/250ML KIT 250 ML IV ONE (09:26)
[2025-07-13] MEDS ORDERED: THROMBIN-JMI 20000 UNIT KIT TP ONE (09:26)
[2025-07-13] MEDS: 0.9%NACL 1000ML 1,000 ML IV ONE (09:29)
[2025-07-13] MEDS ORDERED: LIDOCAINE HCL MPF 1% 5ML VIAL ONE (10:36)
[2025-07-13] MEDS ORDERED: MIDAZOLAM HCL 1 MG/ML 2ML VIAL ONE (10:37)
[2025-07-13] MEDS: TRANEXAMIC ACID 1000MG/10ML IV ONE (10:58)
[2025-07-13] MEDS ORDERED: GLYCOPYRROLATE 0.2 MG/ML 5 ML VIAL ONE (13:16)
[2025-07-13] MEDS ORDERED: BACITRACIN 28.4 GM OINT TP ONE (13:24)
--- NOTE | 2025-07-13 14:46 | HMCIMG ---
EXAM: LUMBAR SPINE 4+VWS REASON: Remov HRDware L-4,5,S-1 Fusion L-2,3,4. COMPARISON: None. TECHNIQUE: 7 views of the lumbar spine were obtained. FINDINGS: Indication undergoing hardware at L4-L5 5 and S1. There is fusion of L2-3 and 4. Fluoroscopy time was 0.37 minutes. . IMPRESSION: 1. Degenerative the finding in the operative notes.
--- NOTE | 2025-07-13 15:05 | NUR ---
PATIENT ARRIVED AT THE UNIT. VS: 119/57, 66 BPM, 96% SPO2 ON NC 2 L. PATIENT IS ALERT AND ORIENTED. STILL A LITTLE TIRED FROM THE ANESTHESIA BUT 0/10 PAIN REPORTED. BILATERAL LOWER EXTREMITY PULSES PRESENT. CAP REFILL LESS THAN 3. POSTERIOR BACK DRESSING INTACT. 4X4 DRESSING, ABD TAPE AND JOVITA DRAINAGE IN PLACE AND DRAINING. SANGUINEOUS DRAINAGE NOTED ON JOVITA < THAN 25 MLS. PATIENT WAS EDUCATED ON THE IMPORTANCE OF LETTING THE NURSE KNOW WHEN PAIN IS PRESENT TO BETTER MANAGE. PATIENT VERBALIZED UNDERSTANDING. CALL LIGHT WITHIN REACH. BED LOCKED AND LOW.
[2025-07-13] MEDS: 0.9%NACL 1000ML 1,000 ML IV SCH (15:37)
[2025-07-13] MEDS ORDERED: SALI10004 MM (18:14)
[2025-07-13] MEDS: ISOSORBIDE MONO 30MG SR TAB PO SCH (20:17)
[2025-07-14] VITALS (7 sets, daily range): BP systolic 119–136; BP diastolic 49–70; PULSE 65–81; RESP 16–20; TEMP 97.9–98.4; O2SAT 92
--- NOTE | 2025-07-14 06:40 | NUR ---
f/c f/c discontinued as ordered , tolerated well, dtv, instruct patient to call nurse when urge to void, call fabian at reach
[2025-07-14] MEDS ORDERED: HYDROcodone/APAP 5/325 1 TAB TABLET PO PRN (08:30)
[2025-07-14] MEDS: HYDROcodone/APAP 5/325 1 TAB TABLET PO PRN (08:48)
[2025-07-14] MEDS: GLIMEPIRIDE 2 MG TABLET PO SCH (08:50)
[2025-07-14] MEDS: LISINOPRIL 20 MG TABLET PO SCH (08:52)
--- NOTE | 2025-07-14 10:36 | NUR ---
DCP:HOME Pt currently lives at home with her Jose Flores [phone]. Pt reports having a walker and cane. Pt has a provider that goes to the home 21 hrs a week to assist with all ADLs, home management, and meals. PCP is Dr. Mccabe and uses [facility] (termite control technician) or [facility] (short term) for any RX needs. At [place] pt would want to go home and family can assist with transportation. Addendum: 07/14/25 at 1038 by DOROTHY SINGLETON SS Amended: Links added.
--- NOTE | 2025-07-14 10:37 | OP ---
DATE OF PROCEDURE: 07/14/2025 INDICATIONS FOR PROCEDURE: The patient is a 75-year-old female patient status post lumbar decompression and fusion many years ago, who now comes with intractable lower back pain, evidence of adjacent level disease with canal stenosis and instability, for which she was advised, agreed and consented freely for the proposed surgery. PREOPERATIVE DIAGNOSIS: Lumbar spondylosis with adjacent level disease, lumbar stenosis, and neurogenic claudication with mechanical back pain. POSTOPERATIVE DIAGNOSIS: Lumbar spondylosis with adjacent level disease, lumbar stenosis, and neurogenic claudication with mechanical back pain. PROCEDURE: Removal of hardware at L4, L5, S1 with decompressive laminectomy at L3-L4, L2-L3 with fusion at L3-L4 with pedicle screws and posterolateral fusion with allograft bone. SURGEON: Stanley Nagy M.D. [employer] DEAN: Gisella Mohr. ESTIMATED BLOOD LOSS: Less than 200 mL. FINDINGS: There was evidence of marked severe stenosis at L3-L4, lesser at L2-L3 with evidence of instability. DESCRIPTION OF PROCEDURE: The patient was brought to the Operating Room where adequate general endotracheal anesthesia was achieved. IV antibiotics were given. Thereafter, the patient underwent placement of DVT garment needed for the EMG and SSEP, and Cabrera catheter. She was positioned prone with adequate padding to all pressure areas. The back was extensively prepped and draped in the usual sterile fashion. The prior midline incision was opened and extended upward with blade and bipolar coagulation, continued dissection done with a Bovie. I was able to expose the intended areas of L2-L3 and L3-L4, as well as the hardware at L4-L5 and L5-S1. Once adequate exposure, we proceeded to remove the hardware at L4-L5 and L5-S1. The pedicle holes were plugged with some Gelfoam to achieve hemostasis. The Weitlaner was repositioned and now the intended levels of L2-L3 and L3-L4 were decompressed mostly with Adson rongeur, drill and multiple sizes of Kerrison rongeur including the banana Kerrison. I used the juliana and the Olivecrona to ____ with adequate decompression into the foramen. Thereafter, the placement of the pedicle screws was done with the drill, gearshift and Feeler probe once adequate position of the screws, which was done under fluoroscopic guidance, 7.0 x 45 mm. We proceeded to decorticate the posterolateral gutters, packed with the allograft bone and then the dragan was positioned under slight compression and secured with the nuts. The caps were removed, marked into the paraspinal muscle. The wound was copiously irrigated with bacitracin solution. It was sprinkled with antibiotic powder. A drain was left around the incision and it was closed by anatomical layer Vicryl #1 to muscle, fascia, and subcutaneous as well and ignacia for the skin. The patient tolerated the procedure well. There were no complications. Family members were addressed. EMG, SSEP remained baseline. Sponge count, needle count, cottonoid count were reported complete at the end of the procedure. TID: [id number] RECEIPT: [id number]
--- NOTE | 2025-07-14 15:08 | NUR ---
PATIENT VOIDED 100 MLS LIGHT YELLOW URINE. PATIENT DENIES ANY DISCOMFORT.
--- NOTE | 2025-07-14 18:00 | NUR ---
SPOKE TO DR. SMITH REGARDING PATIENTS PROGRESS WITH PT. DR. SMITH WAS MADE AWARE DR NEAL VERBALIZED TO PT SHE WOULD POSSIBLY GO HOME ON THURSDAY DEPENDING ON THE JOVITA DRAINAGE AND IF JOVITA IS REMOVED THEN SHE CAN BE D/C AFTERWARDS. PT VOIDED 200MLS OF PALE YELLOW URINE. DR. SMITH WAS MADE AWARE. DISREGARD BLADDER SCAN FOR NOW.
--- NOTE | 2025-07-14 21:58 | HP ---
HISTORY AND PHYSICAL NOTE DATE OF CONSULTATION: 07/14/25 REASON FOR CONSULTATION: Management of diabetes HISTORY OF PRESENT ILLNESS: Patient is status post removal of hardware for neurogenic claudication and low back pain. She has longstanding diabetes has been controlled on current medications She has history of minimal coronary artery disease without any symptoms He has history of hypertension shortness of. Chest pains or leg edema She has history of cervical spine stenosis status post surgery She has history of GERD and mild dysphagia risk controlled She has history of chronic kidney disease stage IIIB Mild cirrhosis without symptoms PAST MEDICAL HISTORY: As above ALLERGIES: Coded Allergies: No Known Allergies (Verified Allergy, Unknown, 08/26/16) FAMILY HISTORY Unremarkable HOME MEDS: Reported Medications Saliva Substitution Combo No.9 (Biotene) 1,000 Ml Mouthwash, 1000 ML MM TID, APPL 07/13/25 Gabapentin (Gabapentin) 100 Mg Capsule, 100 MG PO BID, CAP 07/11/25 [Ozempic] No Conflict Check, SQ QWEEK 07/11/25 Rosuvastatin Calcium (Rosuvastatin Calcium) 5 Mg Tablet, 5 MG PO HS, TAB 07/15/24 Montelukast Sodium (Montelukast Sodium) 10 Mg Tablet, 10 MG PO PM, TAB 07/15/24 Glimepiride (Glimepiride) 2 Mg Tablet, 2 MG PO AM, TAB 07/15/24 Metoclopramide HCl (Reglan) 5 Mg Tab, 5 MG PO TID, TAB 07/15/24 Celecoxib (Celebrex) 200 Mg Capsule, 200 MG PO BID, CAP 07/15/24 Hydrocodone/Acetaminophen (Hydrocodon-Acetaminophen 5-325) 1 Each Tablet, 1 TAB PO Q6HPRN PRN for PAIN LEVEL 5 TO 10 03/08/23 Pantoprazole Sodium (Pantoprazole Sodium) 40 Mg Tablet.dr, 40 TAB PO DAILY 03/08/23 Sertraline HCl (Zoloft) 100 Mg Tablet, 100 MG PO DAILY, TAB 12/07/19 Lisinopril/Hydrochlorothiazide (Lisinopril-Hctz 20-25 mg Tab) 1 Each Tablet, 1 EACH PO DAILY, TAB 12/04/17 Isosorbide Mononitrate (Isosorbide Mononitrate ER) 30 Mg Tab.er.24h, 30 MG PO HS, TAB 12/04/17 INPATIENT MEDS: Current Medications Medications Dose Ordered Sig/Hermelinda Start Time Stop Time Status Last Admin Sodium Chloride 1,000 ml @ 43 mls/hr [id number] 07/13/25 15:30 08/12/25 15:29 07/13/25 15:37 Hydromorphone HCl 0.2 mg Q4H PRN 07/13/25 15:30 07/18/25 15:29 07/13/25 18:05 Hydromorphone HCl 1 mg Q4H PRN 07/13/25 15:30 07/18/25 15:29 07/14/25 02:22 Ondansetron HCl 4 mg Q6H PRN 07/13/25 15:30 08/12/25 15:29 Acetaminophen/ Codeine Phosphate 1 tab Q4H PRN 07/13/25 15:30 08/12/25 15:29 07/14/25 11:47 Celecoxib 200 mg BID 07/13/25 21:00 08/12/25 20:59 07/14/25 20:35 Gabapentin 100 mg BID 07/13/25 21:00 08/12/25 20:59 07/14/25 20:35 Glimepiride 2 mg AM 07/14/25 09:00 08/13/25 08:59 07/14/25 08:50 Isosorbide Mononitrate 30 mg HS 07/13/25 21:00 08/12/25 20:59 07/14/25 20:35 Metoclopramide HCl 5 mg TID 07/13/25 21:00 08/12/25 20:59 07/14/25 20:35 Montelukast Sodium 10 mg PM 07/13/25 21:00 08/12/25 20:59 07/14/25 20:35 Pantoprazole Sodium 40 mg DAILY 07/14/25 09:00 08/13/25 08:59 07/14/25 08:51 Lisinopril 20 mg DAILY 07/14/25 09:00 08/13/25 08:59 07/14/25 08:52 Atorvastatin Calcium 20 mg HS 07/13/25 21:00 08/12/25 20:59 07/14/25 20:35 Sertraline HCl 100 mg DAILY 07/14/25 09:00 08/13/25 08:59 07/14/25 08:51 Insulin Human Regular INSULIN SLIDING SCAL... ACHS 07/13/25 21:00 08/12/25 20:59 07/14/25 20:41 Hydrochlorothiazide 25 mg DAILY 07/14/25 09:00 08/13/25 08:59 07/14/25 08:52 Acetaminophen/ Hydrocodone Bitart 1 tab Q4H PRN 07/14/25 08:30 07/19/25 08:29 Acetaminophen/ Hydrocodone Bitart 2 tab Q4H PRN 07/14/25 08:30 07/19/25 08:29 07/14/25 16:39 VITAL SIGNS Vital Signs Date Time Temp Pulse Resp B/P (MAP) Pulse Ox O2 Delivery O2 Flow Rate FiO2 07/14/25 20:00 98.2 79 20 126/67 96 Room Air 07/14/25 17:21 98.4 65 18 123/59 94 Room Air 07/14/25 12:00 98.2 81 20 119/49 95 Room Air 07/14/25 08:54 92 Room Air* 0 21 07/14/25 08:00 97.9 78 18 136/70 92 Room Air 07/14/25 00:00 98.1 75 20 123/49 98 Nasal Cannula 2.0 REVIEW OF SYSTEMS Ten review of system negative other than stated above PHYSICAL EXAM HEENT atraumatic normocephalic head Neck is supple Lungs are clear to auscultation percussion Abdomen is soft nontender bowel sounds present Extremities no pedal edema Skin exam unremarkable Musculoskeletal surgical scar in the lower lumbar spine noted Neurologic no focal weakness noted LABORATORY RESULTS Laboratory Tests 07/13/25 08:30: Urine Color COLORLESS, Urine Appearance CLEAR, Urine pH 6.5, Urine Specific Orr 1.007, Urine Protein NEGATIVE, Urine Glucose (UA) NEGATIVE, Urine Ketones NEGATIVE, Urine Occult Blood NEGATIVE, Urine Nitrate NEGATIVE, Urine Bilirubin NEGATIVE, Urine Urobilinogen 0.2, Urine Leukocyte Esterase NEGATIVE 07/13/25 09:33: Whole Blood Glucose 198 07/13/25 14:04: Whole Blood Glucose 279 07/13/25 20:20: Whole Blood Glucose 347 07/14/25 05:01: Whole Blood Glucose 252 07/14/25 11:10: Whole Blood Glucose 289, Bedside Glucose Comment Notified Nurse 07/14/25 17:01: Whole Blood Glucose 238 07/14/25 19:18: Whole Blood Glucose 310 PROBLEM LIST: (1) Hyperglycemia ICD Codes: R73.9 - Hyperglycemia, unspecified (2) DM type 2 (diabetes mellitus, type 2) ICD Codes: E11.9 - Type 2 diabetes mellitus without complications (3) Arthritic-like pain ICD Codes: M25.50 - Pain in unspecified joint PLAN Resume home medications for hypertension Resume medications for diabetes use sliding scale Symptomatic pain treatment Anxiety controlled History of cirrhosis chronic kidney disease about her baseline follow up with lab discharge planning based on recovery from surgery in report from physical therapy CHANDLER SMITH MD Jul 14, 2025 21:58
[2025-07-15 03:32] VITALS: BP 139/60; PULSE 64; RESP 20; TEMP 98
[2025-07-15 04:07] LABS: NUCLEATED RED BLOOD CELLS 0.0 % (0.0-0.19); PLATELET COUNT (AUTO) 134.0 K/uL (130-400); RED BLOOD CELL COUNT(AUTO) 3.06 MIL/uL (4.00-5.50); RED CELL DISTRIBUTION WIDTH 12.9 % (11.0-15.5); WHITE BLOOD COUNT (AUTO) 13.5 K/uL (4.8-10.8)
[2025-07-15 04:22] LABS: CREATININE 1.2 mg/dL (0.5-1.0); GLOMERULAR FILTR. RATE CALC 48 mL/min (>90); GLUCOSE,RANDOM 213 mg/dL (70-105); SODIUM SERUM 139 mmol/L (136-145); UREA NITROGEN, BLOOD 35 mg/dL (7-18)
[2025-07-15 08:00] VITALS: BP 158/78; PULSE 63; RESP 18; TEMP 97.8
[2025-07-15 12:00] VITALS: BP 132/63; PULSE 64; RESP 17; TEMP 98
[2025-07-15 16:00] VITALS: BP 156/79; PULSE 58; RESP 17; TEMP 98.3
[2025-07-15 19:44] VITALS: BP 160/78; PULSE 72; RESP 16; TEMP 97.6
[2025-07-15] MEDS: LACTULOSE 20 GM/30 ML UDCUP PO PRN (19:51)
[2025-07-15 23:30] VITALS: BP 133/65; PULSE 60; RESP 16; TEMP 97.8
--- NOTE | 2025-07-15 23:43 | PN ---
SUBJECTIVE: The patient is feeling better. Denies any shortness of breath. The patient has hardware removed from the lumbar area and has a decompression at L4-5 and S1. OBJECTIVE: VITAL SIGNS: Blood pressure is 130/60, pulse 60 and respiratory rate 14. LUNGS: Mostly decreased breath sounds. No wheezes or rhonchi. HEART: Regular rate. ABDOMEN: Soft and nontender. ASSESSMENT AND PLAN: 1. Neck pain/lumbar pain, status post removal of the hardware and decompression of L4-5 and L5-S1, stable. 2. Coronary artery disease, stable. 3. Gastroesophageal reflux disease, stable. 4. Chronic kidney disease, stage 3, stable. TID: [id number] RECEIPT: [id number]
[2025-07-16] VITALS (7 sets, daily range): BP systolic 120–153; BP diastolic 60–71; PULSE 56–60; RESP 16–20; TEMP 97.4–98.2; O2SAT 96–97
--- NOTE | 2025-07-16 23:03 | DS ---
ADMITTING DIAGNOSES: Acute lumbar postlaminectomy syndrome. Neck pain. Hypertension. Chronic kidney disease. Gastroesophageal reflux disease. DISCHARGE DIAGNOSES: Postlaminectomy syndrome, status post hardware removal from the lumbar area and decompression at L4, L5 and S1. CONDITION AT TIME OF DISCHARGE: Stable. Diabetes mellitus is stable. Hypertension is stable. DISCHARGE MEDICATIONS: Continue the medications including Celebrex, gabapentin. HOSPITAL COURSE: The patient was hospitalized with acute lumbar postlaminectomy syndrome. The patient had hardware removal. The patient had a decompression done at L4, L5 and S1, stable. Tolerated therapy. Discharged to home. Hypertension is stable and diabetes mellitus. Sugars are stabilized to 150. GERD is stable. The patient was discharged to home in stable condition. TID: [id number] RECEIPT: [id number]
[2025-07-17 03:32] VITALS: BP 109/46; PULSE 53; RESP 16; TEMP 97.9
[2025-07-17 07:49] VITALS: BP 165/62; PULSE 50; RESP 16; TEMP 97.6
[2025-07-17 08:00] VITALS: O2SAT 97
[2025-07-17 11:48] VITALS: BP 123/71; PULSE 77; RESP 16; TEMP 98.1
[2025-07-17 15:19] VITALS: BP 134/61; PULSE 64; RESP 16; TEMP 97.9
[2025-07-17 19:47] VITALS: BP 151/75; PULSE 59; RESP 19; TEMP 98
== END 2025-07-17 20:15 | disposition home or self-care (01) | DRG 451 ==
LOC: DAHIP 07-13 08:03 → 4BH 07-13 15:00 → 4CH 07-17 08:57
PROVIDERS: ADMIT Internal Medicine; ATTEND Internal Medicine
PROC: 0SG00K1 Fusion of Lumbar Vertebral Joint with Nonautologous Tissue Substitute, Posterior Approach, Posterior Column, Open Approach (ICD-10-PCS; principal; 2025-07-14)
PROC: 01NB0ZZ Release Lumbar Nerve, Open Approach (ICD-10-PCS; 2025-07-14)
PROC: 0QP004Z Removal of Internal Fixation Device from Lumbar Vertebra, Open Approach (ICD-10-PCS; 2025-07-14)
PROC: 4A11X4G Monitoring of Peripheral Nervous Electrical Activity, Intraoperative, External Approach (ICD-10-PCS; 2025-07-14)
PROC: 0QP104Z Removal of Internal Fixation Device from Sacrum, Open Approach (ICD-10-PCS; 2025-07-14)
DX: M96.1 Postlaminectomy syndrome, not elsewhere classified (principal); M48.062 Spinal stenosis, lumbar region with neurogenic claudication; M47.816 Spondylosis without myelopathy or radiculopathy, lumbar region; N18.32 Chronic kidney disease, stage 3b; E11.22 Type 2 diabetes mellitus with diabetic chronic kidney disease; E11.65 Type 2 diabetes mellitus with hyperglycemia; K21.9 Gastro-esophageal reflux disease without esophagitis; F41.9 Anxiety disorder, unspecified; I12.9 Hypertensive chronic kidney disease with stage 1 through stage 4 chronic kidney disease, or unspecified chronic kidney disease; I25.10 Atherosclerotic heart disease of native coronary artery without angina pectoris; K74.60 Unspecified cirrhosis of liver
CPT/HCPCS: 36415; 72110; 80048; 81003; 82140; 82948; 85025; 85027; 85610; 85730; 86850; 86900; 86901; A4344; G0378; J0690; J1010; J1171; J1815; J2250; J2704; J3010; J3260; J3373; J3490; J7030; A4213; A4215; A4216; A4221; A4222; A4223; A4510; A4600; A4649; A4663; A4930; C1776; J0665

== ENCOUNTER 2025-08-27 13:24 | Emergency (ER) | payer OTHER ==
[~2025-08-27] VITALS: Ht 152.4 cm; Wt 84.4 kg
[~2025-08-27 13:24] MED LIST changes: +GABA-529 PO; -HYDR-4060 PO; +OZEMPIC SQ; +SALI10004 MM
[2025-08-27] MEDS ORDERED: DICL20GE TP (13:40)
--- NOTE | 2025-08-27 13:40 | ERN ---
General Chief Complaint: FOOT INJURY/PAIN Stated Complaint: RT FOOT PAIN Time Seen by MD: 13:28 Source: patient History of Present Illness Initial Comments PATIENT IS A 75-YEAR-OLD FEMALE COMING IN COMPLAINING OF RIGHT FOOT PAIN. PATIENT STATES THAT SHE WAS AMBULATING STEPPED ON A ELEVATED AREA AFTER THAT SHE STARTED HAVING PAIN AND THE BASE OF HER FOOT. Allergies: Coded Allergies: No Known Allergies (Verified Allergy, Unknown, 08/26/16) Home Meds Reported Medications Saliva Substitution Combo No.9 (Biotene) 1,000 Ml Mouthwash, 1000 ML MM TID, APPL 07/13/25 Gabapentin (Gabapentin) 100 Mg Capsule, 100 MG PO BID, CAP 07/11/25 [Ozempic] No Conflict Check, SQ QWEEK 07/11/25 Rosuvastatin Calcium (Rosuvastatin Calcium) 5 Mg Tablet, 5 MG PO HS, TAB 07/15/24 Montelukast Sodium (Montelukast Sodium) 10 Mg Tablet, 10 MG PO PM, TAB 07/15/24 Glimepiride (Glimepiride) 2 Mg Tablet, 2 MG PO AM, TAB 07/15/24 Metoclopramide HCl (Reglan) 5 Mg Tab, 5 MG PO TID, TAB 07/15/24 Celecoxib (Celebrex) 200 Mg Capsule, 200 MG PO BID, CAP 07/15/24 Pantoprazole Sodium (Pantoprazole Sodium) 40 Mg Tablet.dr, 40 TAB PO DAILY 03/08/23 Sertraline HCl (Zoloft) 100 Mg Tablet, 100 MG PO DAILY, TAB 12/07/19 Lisinopril/Hydrochlorothiazide (Lisinopril-Hctz 20-25 mg Tab) 1 Each Tablet, 1 EACH PO DAILY, TAB 12/04/17 Isosorbide Mononitrate (Isosorbide Mononitrate ER) 30 Mg Tab.er.24h, 30 MG PO HS, TAB 12/04/17 Past Medical History Past Medical History: Diabetes-Type II, High Cholesterol, Hypertension Medical History Other: GASTRITIS, CHRONIC BACK PAIN, obese Past Surgical History: Appendectomy, Hysterectomy, Cholecystectomy Surgical History Other: BACK SX Family History Family History: Negative Social History Social History: Lives with family Female( History) History: Not Applicable ROS Dictation CONSTITUTIONAL: NO CHILLS, NO FEVER, NO WEAKNESS, NO DIAPHORESIS, NO MALAISE. HEAD/FACE: NO SIGNS OF TRAUMA. EENT: NO EYE PAIN, NO BLURRED VISION, NO TEARING, NO DOUBLE VISION, NO EAR PAIN, NO EAR DISCHARGE, NO NOSE PAIN, NO NASAL CONGESTION, NO THROAT PAIN, NO THROAT SWELLING, NO MOUTH PAIN. RESPIRATORY: NO COUGH, NO ORTHOPNEA, NO SOB, NO STRIDOR, NO WHEEZING. CARDIOVASCULAR: NO CHEST PAIN, NO EDEMA, NO PALPITATIONS, NO SYNCOPE. GASTROINTESTINAL/ABDOMINAL: NO ABDOMINAL PAIN, NO CONSTIPATION, NO DIARRHEA, NO NAUSEA, NO VOMITING. GENITOURINARY: NO ABNORMAL DISCHARGE, NO DYSURIA, NO FREQUENT URINATION, NO HEM ATURIA. NO COMPLAINTS OF PAIN IN THE GENITALS. MUSCULOSKELETAL: NO BACK PAIN, NO GOUT, NO JOINT PAIN, NO JOINT SWELLING, MUSC LE PAIN, NO MUSCLE STIFFNESS, NO NECK PAIN. INTEGUMENTARY: NO CHANGE IN COLOR, NO CHANGE IN HAIR/NAILS, NO DRYNESS, NO LESION, NO LUMPS, NO RASH. NEUROLOGICAL/PSYCH: NO ANXIETY, NOT DEPRESSED, NO EMOTIONAL PROBLEM, NO HEADACHE, NO NUMBNESS, NO PRE-EXISTING DEFICIT, NO HISTORY OF SEIZURES, NO TREMORS, NO WEAKNESS. HEMATOLOGIC/LYMPHATIC: NOT ANEMIC, NO HISTORY OF BLOOD CLOTS, NO APPARENT BLEEDING, NO BRUISING, GLANDS NOT SWOLLEN. ALL SYSTEMS NEGATIVE, EXCEPT NOTED. Physical Exam Physical Exam Dictation VITAL SIGNS: REVIEWED. GENERAL APPEARANCE: ALERT, ORIENTED X3, NO ACUTE DISTRESS, OBESE. HEAD AND FACE: NON-TRAUMATIC. EYES: PERRL, PINK CONJUNCTIVAS, EYELID NO TRAUMA, ANTERIOR CHAMBER CLEAR. EARS: PINNAS INTACT AND NO SIGNS OF TRAUMA OR ERYTHEMA. EAR CANALS CLEAR AND NO DISCHARGE. TMS NO ERYTHEMA. NOSE: NO DISCHARGE, NO BLEEDING. OROPHARYNX: MOUTH NORMAL, TEETH NO CARIES, TONGUE PINK. PHARYNX CLEAR, NO ERYTHEMA. TONSILS NO EXUDATES, NO ABSCESSES NOTED. MUCOUS MEMBRANE MOIST. NECK: SUPPLE, NON-TENDER, NO THYROMEGALY, NO MASSES, NO JVD, NO BRUITS. BREAST: DEFERRED. CHEST: NO TENDERNESS, NO CREPITUS, NO PARADOXICAL MOVEMENT, NO RETRACTIONS. LUNGS: CLEAR, WELL-VENTILATED, SYMMETRIC, NO RALES, NO WHEEZING, NO RHONCHI, NO STRIDOR, GOOD BREATH SOUNDS BILATERALLY. HEART: REGULAR RATE, REGULAR RHYTHM, NO MURMUR, NO GALLOPS. VASCULAR: NO PERIPHERAL EDEMA. ABDOMEN: SOFT, POSITIVE BOWEL SOUNDS, NONDISTENDED, NO GUARDING, NONTENDER, NO REBOUND, NO MASSES NO HEPATOMEGALY, NO SPLENOMEGALY, NO PEDRAZA'S SIGN, NO HERNIAS. RECTAL: DEFERRED. GENITAL: DEFERRED. NEUROLOGICAL: NORMAL SPEECH, GROSS MOTOR FUNCTION INTACT, GROSS SENSORY FUNCTION INTACT. MUSCULOSKELETAL: NECK NONTENDER, FULL RANGE OF MOTION, BACK NONTENDER, FULL RANGE OF MOTION. EXTREMITIES: NONTENDER, FULL RANGE OF MOTION. BASE OF FOOT TENDERNESS TO PALPATION, SKIN: COLOR PINK, DRY, NO TURGOR, NO RASH, NO LACERATIONS, NO ABRASIONS, NO CONTUSIONS. LYMPHATICS: DEFERRED. Results Laboratory and Microbiology Labs Reviewed?: Yes MDM MDM: DIFFERENTIAL DIAGNOSIS: PLANTAR FASCIITIS, ANKLE SPRAIN, RATIONALE: TESTS CONSIDERED AND ORDERED SECONDARY TO SHARED DECISION MAKING INCLUDE: PREVIOUS OUTSIDE RECORDS REVIEWED: OLD ER VISITS. RISK OF COMPLICATION AND/OR MORBIDITY OR MORTALITY OF PATIENT MANAGEMENT: NONE MEDICATIONS-PER MEDICATION RECONCILIATION NEED FOR HOSPITALIZATION: PATIENT DOES NOT MEET CRITERIA FOR HOSPITALIZATION. NEED FOR EMERGENCY MAJOR/MINOR SURGERY: NO PATIENT IS A 75-YEAR-OLD FOOT ON PHYSICAL EXAM PATIENT SOME FOOT WITH THE PLANTAR FASCIITIS. PATIENT ALSO DESCRIBES THE ACTIVITY PRIOR TO THE PAIN PRESENT WAS ELEVATING HER HEEL ON A ELEVATED AREA. ED Course Vital Signs Date Time Temp Pulse Resp B/P (MAP) Pulse Ox O2 Delivery O2 Flow Rate FiO2 08/27/25 13:29 98.2 62 15 148/66 98 Room Air 0 DX & DISP Disposition: Discharge Departure Impression: Primary Impression: Plantar fasciitis Condition: Stable Scripts Diclofenac Sodium (Voltaren Arthritis Pain) 1 % Gel..gram. 5 GM TP BID for 7 Days, #1 TUBE Prov: RYAN RAMIREZ MD 08/27/25 Additional Instructions: FOLLOW-UP WITH PRIMARY CARE PROVIDER IN 1 TO 2 DAYS. TAKE MEDICATIONS DIRECTED HERE IN THE EMERGENCY ROOM. OKAY TO CONTINUE HOME MEDICATIONS UNLESS OTHERWISE DISCUSSED DURING YOUR VISIT IN THE EMERGENCY ROOM TODAY. RETURN TO YOUR NEAREST EMERGENCY ROOM IF SYMPTOMS WORSEN OR IF THERE IS NO IMPROVEMENT. CALL 911 IF YOU NEED IMMEDIATE ASSISTANCE. TAKE TYLENOL [id number] NEEDED AND IF NO CONTRAINDICATIONS ARE PRESENT. INCREASE ORAL HYDRATION. A WOUND CULTURE OR URINE CULTURE WAS ORDERED HERE IN THE EMERGENCY ROOM DEPARTMENT PLEASE FOLLOW-UP WITH PRIMARY CARE PROVIDER AND ADVISE THEM TO GET REPORTS FROM OUR FACILITY. IF YOU HAD ANY SHARON WRAP/SPLINTS THAT WERE APPLIED HERE, PLEASE D O NOT REMOVE THEM UNTIL YOU SEE YOUR PRIMARY CARE OR SPECIALTY. REFERRALS: Referrals: CHANDLER SMITH MD (PCP) DINESH MEDINA MD Time of Disposition: 13:39 RYAN RAMIREZ MD Aug 27, 2025 13:40
[2025-08-27 15:14] VITALS: BP 138/54; PULSE 58; RESP 15; TEMP 98.2; O2SAT 95
--- NOTE | 2025-08-27 15:21 | HMCIMG ---
EXAM: Right ankle radiograph 2 view HISTORY: Pain COMPARISON: None TECHNIQUE: AP, lateral views of the ankle FINDINGS: No fracture or dislocation. No bony abnormalities. Joint spaces are intact. Mild soft tissue swelling. IMPRESSION: No bony abnormalities seen. /[place]
== END 2025-08-27 15:13 | disposition home or self-care (01) ==
LOC: EDH 13:24
DX: M72.2 Plantar fascial fibromatosis (principal); E11.9 Type 2 diabetes mellitus without complications; E78.00 Pure hypercholesterolemia, unspecified; I10 Essential (primary) hypertension; E66.9 Obesity, unspecified; G89.29 Other chronic pain; Z79.899 Other long term (current) drug therapy; Z90.49 Acquired absence of other specified parts of digestive tract; Z90.710 Acquired absence of both cervix and uterus; Z87.19 Personal history of other diseases of the digestive system; Z68.36 Body mass index [BMI] 36.0-36.9, adult
CPT/HCPCS: 73600; 99283